=== PATIENT | female | born 2000 | race African-American/Black ===

== ENCOUNTER 2022-05-16 19:35 | Emergency (ER) | payer MEDICAID, OTHER ==
[~2022-05-16] VITALS: Ht 175.3 cm; Wt 120.0 kg
[2022-05-16 19:35] VITALS: BP 150/81
[~2022-05-16 19:35] MED LIST: IBUP800T27 PO
== END 2022-05-16 20:20 | disposition left against medical advice (07) ==
LOC: ER 19:35 → EDBD 19:35 → ER 20:20
DX: R10.9 Unspecified abdominal pain (principal); Z53.21 Procedure and treatment not carried out due to patient leaving prior to being seen by health care provider; V89.2XXA Person injured in unspecified motor-vehicle accident, traffic, initial encounter; Y93.89 Activity, other specified; Y92.410 Unspecified street and highway as the place of occurrence of the external cause; Y99.8 Other external cause status

== ENCOUNTER 2022-12-01 11:34 | Emergency (ER) | payer MEDICAID ==
[~2022-12-01] VITALS: Ht 160 cm; Wt 108.0 kg
[2022-12-01] MEDS ORDERED: DexAMETHasone SOD PHOS 10MG/1ML VIAL INJ IM ONE (12:00)
[2022-12-01] MEDS ORDERED: PRED20TA2 PO (14:11)
[2022-12-01] MEDS ORDERED: EPIN0.1I11 IJ (14:13)
[2022-12-01 14:21] VITALS: BP 128/98
== END 2022-12-01 14:20 | disposition home or self-care (01) ==
LOC: ER 11:34
DX: T78.40XA Allergy, unspecified, initial encounter (principal); J45.909 Unspecified asthma, uncomplicated; Z88.0 Allergy status to penicillin; X58.XXXA Exposure to other specified factors, initial encounter
CPT/HCPCS: 96372; 99283; J1100